=== PATIENT | female | born 1995 | race Caucasian/White ===

== ENCOUNTER 2016-09-05 12:19 | Emergency (ER) | payer BC ==
[2016-09-05 12:33] VITALS: BP 125/76
--- NOTE | 2016-09-05 13:50 | UC ---
Abdominal Pain Female HPI - HPI Summary HPI Summary: complaint of lower abdominal pain that started yesterday afternoon constant diarrhea every 20 minutes yesterday has small amount of blood in urine -stool is bringh yellow feels nauseous but no vomiting- averytime she drinks fluids ahe has diarrhea denies fever and chills denies pain with urination, urgency and frequecy denies back pain , flank pain LMP unknown on nesha hasn't taken any medicaiton for symptoms recenly returned from [place] 09/02/16 - History of Current Complaint Hx Obtained From: Patient Hx Last Menstrual Period: mirena <Kaylin Moore - Last Filed: 09/05/16 14:23> <Tonja Salvador - Last Filed: 09/06/16 08:31> - History of Current Complaint Chief Complaint: UCGI Stated Complaint: ABDOMINAL PAIN Time Seen by Provider: 09/05/16 13:41 Allergies/Adverse Reactions: Allergies Allergy/AdvReac Type Severity Reaction Status Date / Time No Known Allergies Allergy Verified 09/05/16 12:33 PMH/Surg Hx/FS Hx/Imm Hx Previously Healthy: Yes Respiratory History: Asthma - Surgical History Surgical History: None - Family History Known Family History: Negative: Cardiac Disease, Hypertension, Diabetes - Social History Occupation: Employed Full-time Lives: With Family Alcohol Use: Occasionally Substance Use Type: None Smoking Status (MU): Never Smoked Tobacco <Kaylin Moore - Last Filed: 09/05/16 14:23> Review of Systems Constitutional: Negative Skin: Negative Eyes: Negative ENT: Negative Respiratory: Negative Cardiovascular: Negative Gastrointestinal: Diarrhea, Nausea Genitourinary: Negative Motor: Negative Neurovascular: Negative Musculoskeletal: Negative Neurological: Negative Psychological: Negative All Other Systems Reviewed And Are Negative: Yes <Kaylin Moore - Last Filed: 09/05/16 14:23> Physical Exam Triage Information Reviewed: Yes Appearance: No Pain Distress, Well-Nourished Vital Signs: Initial Vital Signs Temp 98.8 F 09/05/16 12:27 Pulse 104 09/05/16 12:27 Resp 18 09/05/16 12:27 BP 125/76 09/05/16 12:27 Pulse Ox 100 09/05/16 12:27 Vital Signs Reviewed: Yes Eyes: Positive: Conjunctiva Clear ENT: Positive: Pharynx normal, TMs normal Neck: Positive: No Lymphadenopathy Respiratory: Positive: Lungs clear, Normal breath sounds, No respiratory distress, No accessory muscle use Cardiovascular: Positive: RRR, No Murmur, Pulses Normal Abdomen Description: Positive: Nontender, No Organomegaly, Soft. Negative: CVA Tenderness (R), CVA Tenderness (L), Distended, Guarding Bowel Sounds: Positive: Hyperactive Musculoskeletal: Positive: No Edema Neurological: Positive: Alert Psychological Exam: Normal Skin Exam: Normal <Kaylin Moore - Last Filed: 09/05/16 14:23> Vital Signs: Initial Vital Signs Temp 98.8 F 09/05/16 12:27 Pulse 104 09/05/16 12:27 Resp 18 09/05/16 12:27 BP 125/76 09/05/16 12:27 Pulse Ox 100 09/05/16 12:27 <Tonja Salvador - Last Filed: 09/06/16 08:31> Abd Pain Female Course/Dx - Course Course Of Treatment: exam completed. VSS , will treat with zofran and sedn with stool culture kit. reviewed with pt when to seek emergent care and she states understanding - Differential Dx/Diagnosis Differential Diagnosis: Other - gastroenteritis Provider Diagnoses: gastroenteritis <Kaylin Moore - Last Filed: 09/05/16 14:23> Discharge <Kaylin Moore - Last Filed: 09/05/16 14:23> <Tonja Salvador - Last Filed: 09/06/16 08:31> - Discharge Plan Condition: Stable Disposition: HOME Prescriptions: Ondansetron TAB* [Zofran 4 MG Tab*] 4 mg PO Q6H PRN #1 tab PRN Reason: Nausea Patient Education Materials: Gastroenteritis (ED) Referrals: Tammy Esparza MD [Primary Care Provider] - Additional Instructions: start zofran as directed increase fluids and rest GASTROENTERITIS What is Gastroenteritis? Gastroenteritis is an inflammation of the stomach and bowel that is often called the stomach "flu.'' It should only last 1 or 2 days. You usually get gastroenteritis because you've been in contact with someone who's already infected or because you've eaten contaminated food, or drank contaminated water. Many different viruses can cause intestinal problems but the signs and symptoms are usually the same: watery diarrhea, abdominal cramps, and nausea or vomiting. Symptoms Might Include: Abdominal cramps Diarrhea Nausea Vomiting Blood or mucus in stools Muscle aches Headaches Fever Extreme exhaustion Treatment Recommendations: Decrease activity until you feel better or the diarrhea and vomiting are gone. Take clear liquids, such as raciel amor, cola, water, tea, broth, and gelatin, for the first 24 hours or until the diarrhea and vomiting stops. During the next 24 hours you may eat bland foods like cooked cereals, rice, soup, bread, crackers, baked potatoes, eggs, or applesauce. Do not eat fruits, vegetables, fried or spicy foods, bran, candy, dairy products (such as milk or ice cream), apple juice, or alcoholic beverages. You may go back to your normal diet after 2 to 3 days. Drink 8 to 12 glasses of liquid a day. Most of the problems with gastroenteritis are caused by loss of water through vomiting and diarrhea. You may take ibuprofen (Motrin, Advil) or acetaminophen (Tylenol) for fever and muscle aches. Call Your Doctor or Return Here IF: Your symptoms last for more than 3 days. You have severe pain in the abdomen (area around the stomach) or rectum. You have a high temperature. You find blood, mucus, or worms in your stool. You have signs of dehydration (water loss), including dry mouth, excessive thirst, crinkled skin, little or no urination, dizziness, or light-headedness. You have any other new symptoms that worry you. Attestation Statement User Type: Provider - I was available for consult. This patient was seen by the SHARON. The patient was not presented to, seen by, or examined by me. -Sae <Tonja Salvador - Last Filed: 09/06/16 08:31>
== END 2016-09-05 14:30 | disposition home or self-care (01) ==
LOC: UCEAST 12:19
DX: K52.9 Noninfective gastroenteritis and colitis, unspecified (principal)
CPT/HCPCS: 81003; 84702; 99211; G0463

== ENCOUNTER 2016-09-05 18:36 | Emergency (ER) | payer BC ==
[2016-09-05] MEDS ORDERED: NS 0.9% 1000 ML* 1,000 ML IV ONE (21:42)
[2016-09-05 22:03] LABS: Hematocrit 44 % (35-47); Hemoglobin 14.8 g/dl (12.0-16.0); Mean Corpuscular HGB Conc 34 g/dl (31-36); Mean Corpuscular Hemoglobin 32 pg (27-31); Mean Corpuscular Volume 94 fL (80-97); Mean Platelet Volume 9 um3 (7.4-10.4); Red Blood Count 4.71 10^6/ul (4.0-5.4); Red Cell Distribution Width 13 % (10.5-15); White Blood Count 5.9 10^3/ul (3.5-10.8)
[2016-09-05 22:19] LABS: Albumin 4.3 g/dL (3.2-5.2); BUN/Creatinine Ratio 11.8 (8-20); C Reactive Protein 18.72 mg/L (< 5.00); Calcium 9.2 mg/dL (8.6-10.3); EGFR African American 108.6 (>60); EGFR Non-African American 84.4 (>60); Globulin 2.8 g/dL (2-4); Magnesium 2.1 mg/dL (1.9-2.7); Potassium 3.3 mmol/L (3.5-5.0); Total Bilirubin 0.8 mg/dL (0.2-1.0); Total Protein 7.1 g/dL (6.4-8.9)
--- NOTE | 2016-09-05 22:30 | ED ---
Marcello Mustafa Claudia, scribed for Raciel Lin MD on 09/05/16 at 2140 . Abdominal Pain/Female - HPI Summary HPI Summary: 20 year old female presents to [facility] with N/D, abd pain. Pt notes sudden onset of Sx yesterday at noon. She notes asymptomatic yesterday am with nml BM. Pt states 14 bouts of diarrhea today with some bloody stool. Pt denies any fever, chills, vomiting. Pt notes aggravated factors of PO intake. Pt notes that she just got back from [place] on Saturday. She denies ever having similar Sx to this in the past. - History of Current Complaint Chief Complaint: EDAbdPain Stated Complaint: DIARRHEA Time Seen by Provider: 09/05/16 21:37 Hx Obtained From: Patient Hx Last Menstrual Period: mirena Onset/Duration: Sudden Onset, Lasting Days, Still Present Timing: Constant Pain Intensity: 2 Pain Scale Used: 0-10 Numeric Location: Diffuse Radiates: No Character: Cramping Aggravating Factor(s): Food Alleviating Factor(s): Nothing Associated Signs and Symptoms: Positive: Blood in Stool, Nausea, Diarrhea Allergies/Adverse Reactions: Allergies Allergy/AdvReac Type Severity Reaction Status Date / Time No Known Allergies Allergy Verified 09/05/16 12:33 PMH/Surg Hx/FS Hx/Imm Hx Previously Healthy: Yes Endocrine/Hematology History: Denies: Hx Diabetes, Hx Thyroid Disease Cardiovascular History: Denies: Hx Hypertension, Hx Pacemaker/ICD Respiratory History: Reports: Hx Asthma - PRN INHALER Denies: Hx Chronic Obstructive Pulmonary Disease (COPD) GI History: Denies: Hx Ulcer History: Denies: Hx Renal Disease Sensory History: Reports: Hx Contacts or Glasses - CONTACTS, WILL WEAR GLASSES DOS Denies: Hx Hearing Aid Opthamlomology History: Reports: Hx Contacts or Glasses - CONTACTS, WILL WEAR GLASSES DOS Neurological History: Reports: Hx Headaches, Hx Migraine - ONCE A WEEK - NO MEDS Psychiatric History: Denies: Hx Panic Disorder Infectious Disease History: Reports: Traveled Outside the [place] in Last 30 Days Denies: Hx Clostridium Difficile, Hx Hepatitis, Hx Human Immunodeficiency Virus (HIV), Hx of Known/Suspected MRSA, Hx Shingles, Hx Tuberculosis, Hx Known/ Suspected VRE, Hx Known/Suspected VRSA, History Other Infectious Disease - Family History Known Family History: Negative: Cardiac Disease, Hypertension, Diabetes - Social History Occupation: Student Lives: With Family Alcohol Use: Occasionally Substance Use Type: Reports: None Smoking Status (MU): Never Smoked Tobacco Review of Systems Constitutional: Negative Negative: Fever, Chills Eyes: Negative ENT: Negative Cardiovascular: Negative Respiratory: Negative Positive: Abdominal Pain, Diarrhea, Nausea. Negative: Vomiting Genitourinary: Negative Musculoskeletal: Negative Skin: Negative Neurological: Negative Psychological: Normal All Other Systems Reviewed And Are Negative: Yes Physical Exam Triage Information Reviewed: Yes Vital Signs On Initial Exam: Initial Vitals Temp Pulse Resp BP Pulse Ox 98.3 F 98 16 115/72 100 09/05/16 19:15 09/05/16 19:15 09/05/16 19:15 09/05/16 19:15 09/05/16 19:15 Vital Signs Reviewed: Yes Appearance: Positive: Well-Appearing, Pain Distress - mildly uncomfortable Skin: Positive: Warm Head/Face: Positive: Normal Head/Face Inspection ENT: Positive: Hearing grossly normal Neck: Positive: Supple Respiratory/Lung Sounds: Positive: Clear to Auscultation, Breath Sounds Present Cardiovascular: Positive: RRR Abdomen Description: Positive: Nontender, Soft Bowel Sounds: Positive: Present Musculoskeletal: Positive: Strength/ROM Intact Neurological: Positive: Sensory/Motor Intact Psychiatric: Positive: Affect/Mood Appropriate Diagnostics - Vital Signs Vital Signs Temp Pulse Resp BP Pulse Ox 09/05/16 19:15 98.3 F 98 16 115/72 100 - Laboratory Lab Results: Lab Results 09/05/16 09/05/16 09/05/16 Range/Units 21:54 21:54 21:54 WBC 5.9 (3.5-10.8) 10^3/ul RBC 4.71 (4.0-5.4) 10^6/ul Hgb 14.8 (12.0-16.0) g/dl Hct 44 (35-47) % MCV 94 (80-97) fL MCH 32 H (27-31) pg MCHC 34 (31-36) g/dl RDW 13 (10.5-15) % Plt Count 142 L (150-450) 10^3/ul MPV 9 (7.4-10.4) um3 Neut % (Auto) 71.8 (38-83) % Lymph % (Auto) 18.3 L (25-47) % Jennings % (Auto) 7.3 (1-9) % Eos % (Auto) 1.9 (0-6) % Baso % (Auto) 0.7 (0-2) % Absolute Neuts (auto) 4.3 (1.5-7.7) 10^3/ul Absolute Lymphs (auto) 1.1 (1.0-4.8) 10^3/ul Absolute Monos (auto) 0.4 (0-0.8) 10^3/ul Absolute Eos (auto) 0.1 (0-0.6) 10^3/ul Absolute Basos (auto) 0 (0-0.2) 10^3/ul Absolute Nucleated RBC 0.01 10^3/ul Nucleated RBC % 0.1 INR (Anticoag Therapy) 1.13 H (0.89-1.11) Sodium 136 (133-145) mmol/L Potassium 3.3 L (3.5-5.0) mmol/L Chloride 105 (101-111) mmol/L Carbon Dioxide 25 (22-32) mmol/L Anion Gap 6 (2-11) mmol/L BUN 10 (6-24) mg/dL Creatinine 0.85 (0.51-0.95) mg/dL Est GFR ( Amer) 108.6 (>60) Est GFR (Non-Af Amer) 84.4 (>60) BUN/Creatinine Ratio 11.8 (8-20) Glucose 96 (70-100) mg/dL Lactic Acid (0.5-2.0) mmol/L Calcium 9.2 (8.6-10.3) mg/dL Magnesium 2.1 (1.9-2.7) mg/dL Total Bilirubin 0.80 (0.2-1.0) mg/dL AST 14 (13-39) U/L ALT 9 (7-52) U/L Alkaline Phosphatase 70 (34-104) U/L C-Reactive Protein 18.72 H (< 5.00) mg/L Total Protein 7.1 (6.4-8.9) g/dL Albumin 4.3 (3.2-5.2) g/dL Globulin 2.8 (2-4) g/dL Albumin/Globulin Ratio 1.5 (1-3) Lipase 23 (11.0-82.0) U/L 09/05/16 Range/Units 21:54 WBC (3.5-10.8) 10^3/ul RBC (4.0-5.4) 10^6/ul Hgb (12.0-16.0) g/dl Hct (35-47) % MCV (80-97) fL MCH (27-31) pg MCHC (31-36) g/dl RDW (10.5-15) % Plt Count (150-450) 10^3/ul MPV (7.4-10.4) um3 Neut % (Auto) (38-83) % Lymph % (Auto) (25-47) % Jennings % (Auto) (1-9) % Eos % (Auto) (0-6) % Baso % (Auto) (0-2) % Absolute Neuts (auto) (1.5-7.7) 10^3/ul Absolute Lymphs (auto) (1.0-4.8) 10^3/ul Absolute Monos (auto) (0-0.8) 10^3/ul Absolute Eos (auto) (0-0.6) 10^3/ul Absolute Basos (auto) (0-0.2) 10^3/ul Absolute Nucleated RBC 10^3/ul Nucleated RBC % INR (Anticoag Therapy) (0.89-1.11) Sodium (133-145) mmol/L Potassium (3.5-5.0) mmol/L Chloride (101-111) mmol/L Carbon Dioxide (22-32) mmol/L Anion Gap (2-11) mmol/L BUN (6-24) mg/dL Creatinine (0.51-0.95) mg/dL Est GFR ( Amer) (>60) Est GFR (Non-Af Amer) (>60) BUN/Creatinine Ratio (8-20) Glucose (70-100) mg/dL Lactic Acid 0.5 (0.5-2.0) mmol/L Calcium (8.6-10.3) mg/dL Magnesium (1.9-2.7) mg/dL Total Bilirubin (0.2-1.0) mg/dL AST (13-39) U/L ALT (7-52) U/L Alkaline Phosphatase (34-104) U/L C-Reactive Protein (< 5.00) mg/L Total Protein (6.4-8.9) g/dL Albumin (3.2-5.2) g/dL Globulin (2-4) g/dL Albumin/Globulin Ratio (1-3) Lipase (11.0-82.0) U/L Result Diagrams: 09/05/16 21:54 09/05/16 21:54 Lab Statement: Any lab studies that have been ordered have been reviewed, and results considered in the medical decision making process. Re-Evaluation - Re-Evaluation 1 Re-Evaluation Time: 02:04 Change: Improved Abdominal Pain Fem Course/Dx - Course Course Of Treatment: MDM: AFTER SOME TIME IN THE ED THE PT HAS IMPROVED AND WILL BE D/C HOME AND FOLLOW-UP WITH PCP. - Diagnoses Provider Diagnoses: Diarrhea Discharge - Discharge Plan Condition: Stable Disposition: HOME Prescriptions: Dicyclomine CAP* [Bentyl CAP*] 10 mg PO TID #10 cap Patient Education Materials: Dicyclomine (By mouth), Diet for Stomach Ulcers and Gastritis (ED), Acute Diarrhea (ED) Referrals: Tammy Esparza MD [Primary Care Provider] - 2 Days The documentation as recorded by the Marcello dennis Claudia accurately reflects the service I personally performed and the decisions made by , Raciel Lin MD.
[2016-09-06] MEDS ORDERED: Morphine INJ* 2 MG/ML 1 ML SYRINGE IV ONE (00:29)
[2016-09-06 00:31] LABS: Urine Bacteria 1+ (Absent); Urine Bilirubin Negative (Negative); Urine Glucose Negative (Negative); Urine Nitrite Negative (Negative)
[2016-09-06 02:27] VITALS: BP 112/76
--- NOTE | 2016-09-06 11:13 | PN ---
Progress Note - Progress Note Date of Service: 09/06/16 Note: Patient was seen in ED early this morning with complaints of diarrhea with blood. Patient was sent home with diagnosis of diarrhea and Bentyl. Stool culture results positive for stool occult blood. No further change needed. Aware of worsening signs and symptoms and to return if does not improve.
== END 2016-09-06 02:25 | disposition home or self-care (01) ==
LOC: ED 18:36
DX: R19.7 Diarrhea, unspecified (principal)
CPT/HCPCS: 36415; 80053; 81003; 81015; 82272; 83605; 83690; 83735; 85025; 85610; 86140; 87045; 87046; 87077; 87086; 87899; 96360; 96374; 99282; J2270

== ENCOUNTER 2017-09-22 17:59 | Emergency (ER) | payer BC ==
[2017-09-22 18:07] VITALS: BP 121/80
[2017-09-22 19:08] LABS: ABS Basophils 0.1 10^3/ul (0-0.2); ABS Eosinophils 0.2 10^3/ul (0-0.6); ABS Lymphocytes 2.2 10^3/ul (1.0-4.8); ABS Monocytes 0.3 10^3/ul (0-0.8); ABS Neutrophils 4.2 10^3/ul (1.5-7.7); ABS Nucleated RBC 0 10^3/ul; Eosinophil % 2.9 % (0-6); Hematocrit 46 % (35-47); Hemoglobin 15.6 g/dl (12.0-16.0); Lymphocyte % 31.1 % (25-47); Mean Corpuscular HGB Conc 34 g/dl (31-36); Mean Corpuscular Hemoglobin 32 pg (27-31); Mean Corpuscular Volume 93 fL (80-97); Mean Platelet Volume 8.2 um3 (7.4-10.4); Nucleated Red Blood Cells % 0.3; Platelet Count 211 10^3/ul (150-450); Red Blood Count 4.92 10^6/ul (4.00-5.40); Red Cell Distribution Width 13 % (10.5-15)
[2017-09-22 19:23] LABS: EGFR Non-African American 74.7 (>60)
--- NOTE | 2017-09-22 20:06 | ED ---
GI/ HPI - HPI Summary HPI Summary: 22-year-old female presents with pelvic pain for the past month. She states that pain has been getting worse. States she has an IUD in place for over 3 years and believes it is in the wrong position. States that she's been getting cramping pain. She also been having abnormal vaginal discharge. She denies any itchiness. She states that there is an odor to it. She denies any recent antibiotics. No diarrhea or constipation. No pain with urination. No flank pain. No hematuria. No fevers. Has been using ibuprofen for pain. has history of asthma. Denies any history of STDs. - History of Current Complaint Chief Complaint: EDOBProblems Time Seen by Provider: 09/22/17 19:58 Stated Complaint: GYNECOLOGY PROBLEM Hx Last Menstrual Period: mirena Pain Intensity: 5 - Allergy/Home Medications Allergies/Adverse Reactions: Allergies Allergy/AdvReac Type Severity Reaction Status Date / Time No Known Allergies Allergy Verified 09/22/17 18:05 PMH/Surg Hx/FS Hx/Imm Hx Endocrine/Hematology History: Denies: Hx Diabetes, Hx Thyroid Disease Cardiovascular History: Denies: Hx Hypertension, Hx Pacemaker/ICD Respiratory History: Reports: Hx Asthma - PRN INHALER Denies: Hx Chronic Obstructive Pulmonary Disease (COPD) GI History: Denies: Hx Ulcer History: Denies: Hx Renal Disease Sensory History: Reports: Hx Contacts or Glasses - CONTACTS, WILL WEAR GLASSES DOS Denies: Hx Hearing Aid Opthamlomology History: Reports: Hx Contacts or Glasses - CONTACTS, WILL WEAR GLASSES DOS Neurological History: Reports: Hx Headaches, Hx Migraine - ONCE A WEEK - NO MEDS Psychiatric History: Denies: Hx Panic Disorder Infectious Disease History: No Infectious Disease History: Denies: Hx Clostridium Difficile, Hx Hepatitis, Hx Human Immunodeficiency Virus (HIV), Hx of Known/Suspected MRSA, Hx Shingles, Hx Tuberculosis, Hx Known/ Suspected VRE, Hx Known/Suspected VRSA, History Other Infectious Disease, Traveled Outside the [place] in Last 30 Days - Family History Known Family History: Negative: Cardiac Disease, Hypertension, Diabetes - Social History Alcohol Use: Occasionally Substance Use Type: Reports: None Smoking Status (MU): Never Smoked Tobacco Review of Systems Negative: Fever Negative: Chest Pain Negative: Shortness Of Breath Positive: Abdominal Pain. Negative: Vomiting, Nausea All Other Systems Reviewed And Are Negative: Yes Physical Exam Triage Information Reviewed: Yes Vital Signs On Initial Exam: Initial Vitals Temp Pulse Resp BP Pulse Ox 98 F 96 14 121/80 98 09/22/17 18:05 09/22/17 18:05 09/22/17 18:05 09/22/17 18:05 09/22/17 18:05 Vital Signs Reviewed: Yes Appearance: Positive: Well-Appearing Skin: Positive: Warm, Dry Head/Face: Positive: Normal Head/Face Inspection Eyes: Positive: Normal, Conjunctiva Clear ENT: Positive: Pharynx normal Respiratory/Lung Sounds: Positive: Clear to Auscultation, Breath Sounds Present Cardiovascular: Positive: Normal, RRR Abdomen Description: Positive: Soft, Other: - tenderness suprapubic, Bowel Sounds: Positive: Present Pelvic Exam: Positive: External Exam Normal, No Cerv. Motion Tender, Discharge - yellow discharge, Other - no strings seen pelvic exam Musculoskeletal: Positive: Normal Neurological: Positive: Normal Psychiatric: Positive: Normal Diagnostics - Vital Signs Vital Signs Temp Pulse Resp BP Pulse Ox 09/22/17 18:05 98 F 96 14 121/80 98 - Laboratory Lab Results: Lab Results 09/22/17 09/22/17 Range/Units 18:56 18:56 WBC 7.0 (3.5-10.8) 10^3/ul RBC 4.92 (4.00-5.40) 10^6/ul Hgb 15.6 (12.0-16.0) g/dl Hct 46 (35-47) % MCV 93 (80-97) fL MCH 32 H (27-31) pg MCHC 34 (31-36) g/dl RDW 13 (10.5-15) % Plt Count 211 (150-450) 10^3/ul MPV 8.2 (7.4-10.4) um3 Neut % (Auto) 59.6 (38-83) % Lymph % (Auto) 31.1 (25-47) % [place] % (Auto) 4.4 (0-7) % Eos % (Auto) 2.9 (0-6) % Baso % (Auto) 2.0 (0-2) % Absolute Neuts (auto) 4.2 (1.5-7.7) 10^3/ul Absolute Lymphs (auto) 2.2 (1.0-4.8) 10^3/ul Absolute Monos (auto) 0.3 (0-0.8) 10^3/ul Absolute Eos (auto) 0.2 (0-0.6) 10^3/ul Absolute Basos (auto) 0.1 (0-0.2) 10^3/ul Absolute Nucleated RBC 0 10^3/ul Nucleated RBC % 0.3 Sodium 138 (135-145) mmol/L Potassium 4.8 (3.5-5.0) mmol/L Chloride 102 (101-111) mmol/L Carbon Dioxide 29 (22-32) mmol/L Anion Gap 7 (2-11) mmol/L BUN 13 (6-24) mg/dL Creatinine 0.93 (0.51-0.95) mg/dL Est GFR ( Amer) 90.4 (>60) Est GFR (Non-Af Amer) 74.7 (>60) BUN/Creatinine Ratio 14.0 (8-20) Glucose 92 (70-100) mg/dL Calcium 9.8 (8.6-10.3) mg/dL Total Bilirubin 0.40 (0.2-1.0) mg/dL AST 16 (13-39) U/L ALT 12 (7-52) U/L Alkaline Phosphatase 79 (34-104) U/L C-Reactive Protein < 1.00 (<8.01) mg/L Total Protein 7.6 (6.4-8.9) g/dL Albumin 4.8 (3.2-5.2) g/dL Globulin 2.8 (2-4) g/dL Albumin/Globulin Ratio 1.7 (1-3) Beta HCG, Quant < 0.60 mIU/mL Result Diagrams: 09/22/17 18:56 09/22/17 18:56 Lab Statement: Any lab studies that have been ordered have been reviewed, and results considered in the medical decision making process. - Ultrasound No standard instances Ultrasound Interpretation: No Acute Changes - IUD correct position, normal u/s Ultrasound Interpretation Completed By: Radiologist ANUSHKA Course/Dx - Course Course Of Treatment: 22-year-old female presents with pelvic pain for the past month. She states that pain has been getting worse. States she has an IUD in place for over 3 years and believes it is in the wrong position. States that she's been getting cramping pain. She also been having abnormal vaginal discharge. She denies any itchiness. She states that there is an odor to it. She denies any recent antibiotics. No diarrhea or constipation. No pain with urination. No flank pain. No hematuria. No fevers. Has been using ibuprofen for pain. has history of asthma. Denies any history of STDs. on exam has tenderness pelvic. on pelvic exam do not see stings. has yellow discharge present. labs wbc normal. crp normal. no uti. u/s shows IUD correct position. gave referral to poultry cutter. will wait for final cultures for vaginal discharge. patient understand and agrees with plan. - Diagnoses Differential Diagnoses - Female: STD, Urinary Tract Infection, Vaginitis Provider Diagnoses: Abdominal pain Discharge - Sign-Out/Discharge Documenting (check all that apply): Patient Departure - Discharge Plan Condition: Good Disposition: HOME Patient Education Materials: Abdominal Pain (ED) Referrals: Tammy Esparza MD [Primary Care Provider] - Deborah Boyle MD [Medical Doctor] - Additional Instructions: Take Tylenol or ibuprofen every 6 hours for pain Follow up with obgyn Return to ED if develop any new or worsening symptoms - Billing Disposition and Condition Condition: GOOD Disposition: Home
[2017-09-22 20:26] LABS: Urine Appearance Clear; Urine Blood 1+ (Negative); Urine Color Straw; Urine Ketones Negative (Negative); Urine Protein Negative (Negative); Urine Red Blood Cell Trace(0-2/hpf) (Absent); Urine Specific Gravity 1.004 (1.010-1.030); Urine Urobilinogen Negative (Negative); Urine White Blood Cell Absent (Absent)
--- NOTE | 2017-09-23 08:06 | RAD ---
INDICATION: Pelvic pain. Evaluate presence/location of IUD COMPARISON: None TECHNIQUE: Longitudinal and transverse transvaginal scans of the pelvis were obtained. FINDINGS: Uterus: The uterus is normal in size. There are no focal masses. The uterus measures 6.9 x 3.2 x 4.7 cm. Endometrial thickness: The endometrial thickness is measured at 0.4 cm. There is no IUD in expected position. Free fluid: There is no significant free fluid . Ovaries: The ovaries are normal in size. The right ovary measures 2.7 x 3.0 x 2.0 cm. The left ovary measures 3.1 x 1.6 x 3.2 cm. There are small follicles bilaterally. Doppler interrogation demonstrates flow to each ovary. Other: None IMPRESSION: IUD IN EXPECTED POSITION. NO SONOGRAPHIC ABNORMALITIES.
== END 2017-09-22 23:35 | disposition home or self-care (01) ==
LOC: ED 17:59
DX: R10.2 Pelvic and perineal pain (principal); N89.8 Other specified noninflammatory disorders of vagina; Z97.5 Presence of (intrauterine) contraceptive device
CPT/HCPCS: 36415; 76830; 80053; 81003; 81015; 84702; 85025; 86140; 87480; 87491; 87510; 87591; 87661; 99283